=== PATIENT | female | born 1955 | race African-American/Black ===

== ENCOUNTER 2016-10-29 13:02 | Emergency (ER) | payer BC ==
[2016-10-29 13:29] VITALS: BP 151/71
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
[2016-10-29] MEDS ORDERED: Naproxen TAB* 250 MG PO ONE (13:53)
== END 2016-10-29 14:29 | disposition home or self-care (01) ==
LOC: UCEAST 13:02
DX: S39.012A Strain of muscle, fascia and tendon of lower back, initial encounter (principal); X50.3XXA Overexertion from repetitive movements, initial encounter; Y93.89 Activity, other specified; Y92.190 Kitchen in other specified residential institution as the place of occurrence of the external cause; Y99.0 Civilian activity done for income or pay; Z87.442 Personal history of urinary calculi; L72.9 Follicular cyst of the skin and subcutaneous tissue, unspecified; Z87.891 Personal history of nicotine dependence
CPT/HCPCS: 99213; A9270-GY; G0463

== ENCOUNTER → 2016-12-28 06:33 | Day surgery (SDC) | payer BC ==
[~2016-12-28 06:33] MED LIST: Buffered Lidocaine 1% SYR 3ML* 3 ML/SYR SYRINGE INTRADERM ONE; Bupivacaine 0.25% SDV* 30 ML ONE; Cisatracurium* 2 MG/ML MDV 10 ML ONE; Dexamethasone IV* 4 MG/ML 1 ML (4 MG) ONE; EPHEDrine (Pressors)* 50 MG/ML VIAL ONE; Famotidine IV* 10 MG/ML 2 ML (20 mg) IV ONE; Famotidine IV* 10 MG/ML 2 ML (20 mg) ONE; HYDROmorphone INJ* 1 MG/ML CARPUJECT SYRINGE IV PRN; KETAMINE HCL* 50 MG/ML 10 ML VIAL ONE; Ketorolac INJ* 30 MG/ML 1 ML VIAL ONE; Levalbuterol 0.63MG/3ML NEB INH PRN; Lidocaine 2% PF * 5 ML VIAL ONE; Metoclopramide TAB* 10 MG ONE; Metoclopramide TAB* 10 MG PO ONE; Midazolam* 1 MG/ML 5 ML VIAL (5 MG) ONE; Ondansetron INJ* 2 MG/ML VIAL IV PRN; Ondansetron INJ* 2 MG/ML VIAL ONE; Propofol* 10 MG/ML 20 ML BTL IV PUSH ONE; ceFAZolin 2 GM PREMIX (*) 2 GM/50 ML BAG IVPB ONE; fentaNYL* 50 MCG/ML 2 ML VIAL (100 MCG VIAL) IV PRN; fentaNYL* 50 MCG/ML 2 ML VIAL (100 MCG VIAL) ONE; oxyCODONE/Acetamin 5/325 MG* TAB PO PRN
[2016-12-28 10:35] VITALS: BP 159/78
--- NOTE | 2016-12-28 12:29 | OP ---
OPERATIVE REPORT: DATE OF OPERATION: 12/28/16 DATE OF : 59 SURGEON: David Cortez MD PROBATION AND PATROL AGENT: MARIAN Craven ANESTHESIOLOGIST: Dr. Olivera. ANESTHESIA: General. PRE-OP DIAGNOSES: 1. Right dorsal wrist ganglion cyst. 2. Right wrist Madelung deformity, stiffness and pain. POST-OP DIAGNOSES: 1. Right dorsal wrist ganglion cyst. 2. 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 OPERATIVE PROCEDURES: 1. Excision of right dorsal wrist ganglion cyst. 2. Diagnostic wrist arthroscopy, right wrist. 3. Arthroscopic partial synovectomy, right wrist. INDICATIONS: Ms. Borja is a 61-year-old woman who has had progressive right wrist pain for the las t several months. She has a right dorsal wrist ganglion cyst that is a little bit more distal than the typical cyst. Moreover, the area is the carpometacarpal joints. She also has very limited radha on with only about 20 or 30 degrees of wrist extension and 60 or 70 degrees of wrist flexion, and sh e is having quite a bit of dorsal wrist pain in the area of the dorsal carpus. It is not really uln ar-sided. She does have a mild Madelung deformity. I had gotten a CT scan and her joint spaces loo ked relatively well preserved on the CT. We had talked about excising the cyst and she really wante d that out and it did come back after I drained it one time and also doing a diagnostic wrist arthro scopy just to get a better sense for the cartilage surfaces of the radiocarpal and mid carpal joints . ESTIMATED BLOOD LOSS: 5 mL. COMPLICATIONS: None. FINDINGS: Just very mild cartilage degeneration in the scaphoid facet; otherwise, the cartilage in the radiocarpal and mid carpal joints looked well preserved. DESCRIPTION OF PROCEDURE: Ms. Borja was seen and the correct site, side and procedure were identif ied in the preoperative holding area. We came back to the operating room and anesthesia was induced . The arm was prepped and draped in the usual fashion and a formal time-out was performed. The arm was exsanguinated with the Esmarch and the tourniquet inflated to 250 mmHg. I began by tray bernabe a lazy S-shaped incision over the dorsal ganglion cyst just posterior to the carpometacarpal joint s. Dissection was carried down, taking care to preserve any longitudinal dorsal sensory nerves. Th e cyst was encountered. It was sitting on top of the fourth dorsal compartment tendons and wrapped around them both radially and ulnarly. We went ahead and performed a marginal excision of the cyst and tracked it back down to the carpometacarpal and mid carpal joint capsule area. The cyst was amp utated at its stalk and the dorsal capsule was cauterized with the Bovie in this area. I then placed the arm in the Acumed traction tower and 20 pounds of traction were applied. I began by making the 3/4 portal and placing the camera through that portal. This was done in standard [facility] ion with an 11 blade followed by a mosquito and then the blunt trocar to place the cannula. I looke d around at the cartilage joint surfaces. There was a little bit of degeneration in the scaphoid fa cet, but it was very minimal. The radiolunate joint looked well preserved. It was very tight and I could not quite get the camera over to get a great visualization of the ulnocarpal joint and TFCC. The probe and then the shaver was introduced through the 6R portal. The dorsal synovium was excise d. There were a few large flaps that had to be debrided. I then was able to get a little bit gayathri r view of the ulnar side of the joint, but ultimately the camera did not want to pass to that side a nd so I decided I would do more harm than good by attempting to force it over. I did develop a 4/5 portal and used this to introduce the probe. I felt like at this point I had gotten a good look of the cartilage surfaces. So I withdrew the camera and I developed the mid carpal portals radially an d ulnarly just on either side of the fourth dorsal compartment tendons. The camera was placed in th e more radial portal. The probe was placed through the ulnar portal. We got good views of the luno capitate and triquetrohamate joints. The scaphoid and the trapezoid were likewise visualized. All the cartilage surfaces looked very nice. There was some instability of the scapholunate interval. I was able to gap it open. I was able to place my probe down between the scaphoid and the lunate. 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 At this point, I had a nice view of the articular surfaces and so I withdrew the camera. We went ahead and let the arm out of the tr action tower. The wounds were irrigated and closed with some 4-0 nylon suture. Everything was infi ltrated with 0.25% Marcaine. The wounds were then dressed with Xeroform, 4x4, sterile Webril, and a n Osiel wrap. She was then woken up and taken to the recovery room in stable condition. POSTOPERATIVE PLAN: I am going to let her gently wean back into normal activity. She is going to ke ep the wound clean and dry for a couple of weeks. [id number]/[facility] #: [id number]
== END | disposition home or self-care (01) ==
LOC: OREAST 06:33
PROVIDERS: ATTEND Orthopaedic Surgery Hand Surgery
DX: M67.431 Ganglion, right wrist (principal); M25.331 Other instability, right wrist; M24.131 Other articular cartilage disorders, right wrist; F17.200 Nicotine dependence, unspecified, uncomplicated; Z79.1 Long term (current) use of non-steroidal anti-inflammatories (NSAID); M19.031 Primary osteoarthritis, right wrist
CPT/HCPCS: 88304; A9270-GY; J0690; J1100; J1885; J2250; J2405; J2704; J3010

== ENCOUNTER 2017-07-04 19:48 | Emergency (ER) | payer BC ==
[2017-07-04 19:55] VITALS: BP 153/87
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
== END 2017-07-04 20:35 | disposition home or self-care (01) ==
LOC: UCEAST 19:48
DX: S05.11XA Contusion of eyeball and orbital tissues, right eye, initial encounter (principal); W22.8XXA Striking against or struck by other objects, initial encounter; Y93.9 Activity, unspecified; Y92.9 Unspecified place or not applicable; F17.210 Nicotine dependence, cigarettes, uncomplicated
CPT/HCPCS: 99211; G0463

== ENCOUNTER → 2017-07-04 20:52 | Emergency (ER) | payer BC ==
[~2017-07-04 20:52] MED LIST changes: -Buffered Lidocaine 1% SYR 3ML* 3 ML/SYR SYRINGE INTRADERM ONE; -Bupivacaine 0.25% SDV* 30 ML ONE; -Cisatracurium* 2 MG/ML MDV 10 ML ONE; -Dexamethasone IV* 4 MG/ML 1 ML (4 MG) ONE; -EPHEDrine (Pressors)* 50 MG/ML VIAL ONE; -Famotidine IV* 10 MG/ML 2 ML (20 mg) IV ONE; -Famotidine IV* 10 MG/ML 2 ML (20 mg) ONE; +HYDROcodone/ACETAMIN 5-325 MG* 1 TAB PO ONE; -HYDROmorphone INJ* 1 MG/ML CARPUJECT SYRINGE IV PRN; -KETAMINE HCL* 50 MG/ML 10 ML VIAL ONE; -Ketorolac INJ* 30 MG/ML 1 ML VIAL ONE; -Levalbuterol 0.63MG/3ML NEB INH PRN; -Lidocaine 2% PF * 5 ML VIAL ONE; -Metoclopramide TAB* 10 MG ONE; -Metoclopramide TAB* 10 MG PO ONE; -Midazolam* 1 MG/ML 5 ML VIAL (5 MG) ONE; -Ondansetron INJ* 2 MG/ML VIAL IV PRN; -Ondansetron INJ* 2 MG/ML VIAL ONE; -Propofol* 10 MG/ML 20 ML BTL IV PUSH ONE; -ceFAZolin 2 GM PREMIX (*) 2 GM/50 ML BAG IVPB ONE; -fentaNYL* 50 MCG/ML 2 ML VIAL (100 MCG VIAL) IV PRN; -fentaNYL* 50 MCG/ML 2 ML VIAL (100 MCG VIAL) ONE; -oxyCODONE/Acetamin 5/325 MG* TAB PO PRN
--- NOTE | 2017-07-04 21:52 | RAD ---
INDICATION: Head injury. COMPARISON: Comparison is made with a prior CT of the brain from May 06, 2010. TECHNIQUE: Contiguous axial sections of the brain were obtained from the skull base to the vertex without contrast. FINDINGS: The ventricles, cisterns and sulci are within normal limits. No significant focal abnormality or mass effect is seen. There is no evidence for hemorrhage. No significant focal osseous abnormality is seen. The visualized portion of the paranasal sinuses appear clear. IMPRESSION: NO EVIDENCE FOR ACUTE INTRACRANIAL ABNORMALITY.
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
[2017-07-04 23:29] VITALS: BP 187/84
== END | disposition home or self-care (01) ==
LOC: ED 20:52
DX: S00.83XA Contusion of other part of head, initial encounter (principal); W22.8XXA Striking against or struck by other objects, initial encounter; Y93.9 Activity, unspecified; Y92.9 Unspecified place or not applicable; F17.210 Nicotine dependence, cigarettes, uncomplicated; S06.0X9A Concussion with loss of consciousness of unspecified duration, initial encounter; Z86.79 Personal history of other diseases of the circulatory system
CPT/HCPCS: 70450; 70486; 99282

== ENCOUNTER 2023-12-21 21:47 | Observation (INO) ==
[2023-12-21 22:33] LABS: INR 1.07 (0.83-1.13)
[2023-12-21 22:34] LABS: Hematocrit 15.6 % (35-45); Hemoglobin 4.8 g/dL (11.5-14.3); Mean Corpuscular Hemoglobin 22.7 pg (27-33); Mean Corpuscular Hgb Conc 31.1 g/dL (31-36); Mean Corpuscular Volume 72.9 fL (80-97); Platelet Count 411 10^3/uL (150-450); Red Blood Count 2.14 10^6/uL (3.63-4.92); Red Cell Distribution Width 20.3 % (12-17); White Blood Count 9.3 10^3/uL (3.8-11.8)
[2023-12-21 22:50] LABS: ALT 4 U/L (7-52); AST 9 U/L (13-39); Albumin 4.1 g/dL (3.2-5.2); Albumin/Globulin Ratio 1.1 (1-3); Alkaline Phosphatase 78 U/L (35-149); Anion Gap 9 mmol/L (2-16); Blood Urea Nitrogen 19 mg/dL (6-24); CO2 Carbon Dioxide 29 mmol/L (22-32); Calcium 9.5 mg/dL (8.6-10.3); Chloride 99 mmol/L (101-111); Creatinine, Serum 1.09 mg/dL (0.51-0.95); Globulin 3.6 g/dL (2-4); Glucose 126 mg/dL (70-100); Potassium 3.1 mmol/L (3.5-5.0); Sodium 137 mmol/L (135-145); Total Bilirubin 0.4 mg/dL (0.2-1.0); Total Protein 7.7 g/dL (6.4-8.9)
[2023-12-21 22:51] LABS: High Sens Troponin Baseline 4 pg/mL (<15)
[2023-12-21 23:09] LABS: ABS Basophils 0.1 10^3/uL (0.0-0.1); ABS Lymphocytes 1.7 10^3/uL (1.0-4.8); ABS Monocytes 0.6 10^3/uL (0.0-0.9); ABS Nucleated RBC 0.01 10^3/ul; Anisocytosis 2+; Eosinophil % 0.3 %; Hypochromasia 2+; Lymphocyte % 17.7 %; Microcytosis 2+; Nucleated Red Blood Cells % 0.1 %/100WBC (0.0-0.8); Polychromasia 1+; Stomatocytes 1+; Target Cells 1+
[2023-12-21 23:42] LABS: ABS Eosinophils 0.1 10^3/uL (0.0-0.5); ABS Lymphocytes 1.8 10^3/uL (1.0-4.8); ABS Monocytes 0.7 10^3/uL (0.0-0.9); ABS Neutrophils 7.5 10^3/uL (1.5-7.6); ABS Nucleated RBC 0.02 10^3/ul; Eosinophil % 0.7 %; Hematocrit 15.4 % (35-45); Hemoglobin 4.7 g/dL (11.5-14.3); Lymphocyte % 17.8 %; Mean Corpuscular Hemoglobin 22.4 pg (27-33); Mean Corpuscular Hgb Conc 30.7 g/dL (31-36); Mean Corpuscular Volume 73.1 fL (80-97); Mean Platelet Volume 7.5 fL (7.5-11.2); Nucleated Red Blood Cells % 0.2 %/100WBC (0.0-0.8); Platelet Count 414 10^3/uL (150-450); Red Blood Count 2.11 10^6/uL (3.63-4.92); Red Cell Distribution Width 20.6 % (12-17); White Blood Count 10.1 10^3/uL (3.8-11.8)
[2023-12-22 00:04] LABS: High Sensitivity Troponin 1 Hr 4 pg/mL (<15)
[2023-12-22 02:32] LABS: Urine Appearance Turbid; Urine Bilirubin Negative (Negative); Urine Blood Trace (Negative); Urine Color Light-Yellow; Urine Glucose Negative (Negative); Urine Ketones Negative (Negative); Urine Nitrite Negative (Negative); Urine Protein Negative (Negative); Urine Specific Gravity 1.012 (1.002-1.030); Urine Urobilinogen Negative (Negative)
[2023-12-22 02:45] LABS: Urine Bacteria 2+ /HPF (Absent); Urine Red Blood Cell Absent /HPF (0-Trace); Urine Squamous Epithelial Cell Present /HPF (Absent); Urine White Blood Cell 1+(6-10/hpf) /HPF (0-Trace)
[2023-12-22 03:18] LABS: % Iron Saturation 4 % (15-55); .Transferrin 398 mg/dL (203-362); Iron < 20 ug/dL (50-212); Total Iron Binding Capacity 557 mcg/dL (250-450); Unsaturated Iron Binding 537 ug/dL
[2023-12-22 03:37] LABS: Ferritin 1.7 ng/mL (11-307)
[2023-12-22] MEDS: Potassium Chlor 20 meq TAB.ER PO ONE (05:42)
[2023-12-22] MEDS: Pantoprazole VIAL 40 MG VIAL IV SCH (05:43)
[2023-12-22 05:52] LABS: Hematocrit 20.8 % (35-45); Hemoglobin 6.8 g/dL (11.5-14.3); Mean Corpuscular Hemoglobin 24.9 pg (27-33); Mean Corpuscular Hgb Conc 32.7 g/dL (31-36); Mean Corpuscular Volume 76.3 fL (80-97); Mean Platelet Volume 7.4 fL (7.5-11.2); Platelet Count 382 10^3/uL (150-450); Red Blood Count 2.73 10^6/uL (3.63-4.92); Red Cell Distribution Width 20.8 % (12-17); White Blood Count 9.7 10^3/uL (3.8-11.8)
[2023-12-22 06:30] LABS: Calcium 8.9 mg/dL (8.6-10.3); Creatinine, Serum 0.92 mg/dL (0.51-0.95); Magnesium 2.3 mg/dL (1.9-2.7); Potassium 3.7 mmol/L (3.5-5.0); eGFR CKD-EPI 68.7 (>60)
[2023-12-22] MEDS: CMCS:Dorzolamide/Timolol OPTH (NF) 10 ML BOT BOTH EYES SCH (09:23)
[2023-12-22 10:46] LABS: Hematocrit 24.8 % (35-45); Hemoglobin 8.3 g/dL (11.5-14.3)
[2023-12-22 15:16] LABS: Hematocrit 23.2 % (35-45)
[2023-12-23 06:25] LABS: ABS Eosinophils 0.1 10^3/uL (0.0-0.5); ABS Lymphocytes 1.9 10^3/uL (1.0-4.8); ABS Monocytes 0.7 10^3/uL (0.0-0.9); ABS Neutrophils 7.1 10^3/uL (1.5-7.6); ABS Nucleated RBC 0.03 10^3/ul; Eosinophil % 0.7 %; Hematocrit 23.9 % (35-45); Hemoglobin 7.8 g/dL (11.5-14.3); Lymphocyte % 19.1 %; Mean Corpuscular Hemoglobin 25.7 pg (27-33); Mean Corpuscular Hgb Conc 32.7 g/dL (31-36); Mean Corpuscular Volume 78.6 fL (80-97); Mean Platelet Volume 7.5 fL (7.5-11.2); Nucleated Red Blood Cells % 0.3 %/100WBC (0.0-0.8); Platelet Count 386 10^3/uL (150-450); Red Blood Count 3.04 10^6/uL (3.63-4.92); Red Cell Distribution Width 20.8 % (12-17); White Blood Count 9.7 10^3/uL (3.8-11.8)
[2023-12-23 06:42] LABS: Creatinine, Serum 1.02 mg/dL (0.51-0.95); Potassium 3.9 mmol/L (3.5-5.0); eGFR CKD-EPI 60.7 (>60)
[2023-12-23] MEDS: Ferric Gluconate IV 250 MG in NS 0.9% 250 ml 200 ML IVPB SCH (11:17)
[2023-12-23 18:47] LABS: Hematocrit 22.9 % (35-45); Hemoglobin 7.7 g/dL (11.5-14.3)
[2023-12-24 06:03] LABS: ABS Eosinophils 0.1 10^3/uL (0.0-0.5); ABS Lymphocytes 2.2 10^3/uL (1.0-4.8); ABS Monocytes 0.6 10^3/uL (0.0-0.9); ABS Neutrophils 6.7 10^3/uL (1.5-7.6); ABS Nucleated RBC 0.04 10^3/ul; Eosinophil % 0.7 %; Hematocrit 23.9 % (35-45); Hemoglobin 7.8 g/dL (11.5-14.3); Lymphocyte % 22.3 %; Mean Corpuscular Hgb Conc 32.7 g/dL (31-36); Mean Corpuscular Volume 79.4 fL (80-97); Mean Platelet Volume 7.3 fL (7.5-11.2); Nucleated Red Blood Cells % 0.4 %/100WBC (0.0-0.8); Platelet Count 347 10^3/uL (150-450); Red Blood Count 3.01 10^6/uL (3.63-4.92); Red Cell Distribution Width 21.8 % (12-17); White Blood Count 9.6 10^3/uL (3.8-11.8)
[2023-12-24] MEDS ORDERED: fentaNYL 100 mcg/2 ml 50 MCG/ML VIAL ONE (15:00)
[2023-12-24] MEDS ORDERED: Midazolam 10 mg/10 ml VIAL 1 mg/ml 10 ml VIAL (10 mg) ONE (15:00)
[2023-12-24 18:12] VITALS: BP 157/68
== END 2023-12-24 18:15 | disposition home or self-care (01) ==
LOC: ED 21:47 → EDHOLD 21:47 → SUATTDRO 12-22 02:08 → MED 12-22 06:49
PROVIDERS: ADMIT Internal Medicine; ATTEND Internal Medicine